=== PATIENT | male | born 1995 | race Caucasian/White ===

== ENCOUNTER 2017-06-07 20:25 | Emergency (ER) | payer BC ==
[~2017-06-07] VITALS: Ht 175.3 cm; Wt 74.6 kg
[~2017-06-07 20:25] MED LIST: DEXM5TAB PO
[2017-06-07 20:32] VITALS: TEMP 36.6; Ht 175.3 cm; Wt 74.6 kg
[2017-06-07 21:13] VITALS: BP 110/68; PULSE 58; O2SAT 100
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
== END 2017-06-07 21:13 | disposition home or self-care (01) ==
LOC: C.EDB 20:29 → C.EDD 21:13
DX: S01.81XD Laceration without foreign body of other part of head, subsequent encounter (principal); X58.XXXD Exposure to other specified factors, subsequent encounter; H53.9 Unspecified visual disturbance